=== PATIENT | male | born 1980 | race African-American/Black ===

== ENCOUNTER 2024-08-30 11:14 | Emergency (ER) | payer SELFPAY ==
[2024-08-30] MEDS ORDERED: Ketorolac Tromethamine 30 MG (1 mL) VIAL ONE (11:53)
== END 2024-08-30 12:05 | disposition home or self-care (01) ==
LOC: ERS 11:14
DX: K08.89 Other specified disorders of teeth and supporting structures (principal); I10 Essential (primary) hypertension
CPT/HCPCS: 96372; 99282; J1885

== ENCOUNTER 2024-09-09 08:00 | Emergency (ER) | payer SELFPAY ==
[2024-09-09] MEDS ORDERED: Ketorolac Tromethamine 30 MG (1 mL) VIAL ONE (08:32)
[2024-09-09] MEDS ORDERED: Amoxicillin/Potassium Clav 875 MG TAB ONE (08:32)
== END 2024-09-09 08:58 | disposition home or self-care (01) ==
LOC: ERS 08:00
DX: K08.89 Other specified disorders of teeth and supporting structures (principal); I10 Essential (primary) hypertension; Z79.899 Other long term (current) drug therapy
CPT/HCPCS: 96372; 99283; J1885